=== PATIENT | female | born 2000 | race Caucasian/White ===

== ENCOUNTER 2023-06-17 11:01 | Outpatient (CLI) | payer OTHER, SELFPAY ==
[2023-06-17 15:49] LABS: Chlamydia DNA Amplified* NOT DETECTED (No Detected); GC DNA Amplified* NOT DETECTED (No Detected)
== END 2023-06-17 11:02 | disposition home or self-care (01) ==
LOC: LKVREF 11:07
PROVIDERS: Visit Provider Family Medicine
DX: Z11.3 Encounter for screening for infections with a predominantly sexual mode of transmission (principal); R52 Pain, unspecified
CPT/HCPCS: 86592; 86703; 87086; 87491; 87591